=== PATIENT | female | born 1965 | race Caucasian/White ===

== ENCOUNTER 2018-10-22 09:59 | Emergency (ER) | payer BC ==
[2018-10-22 10:17] VITALS: BP 130/77
--- NOTE | 2018-10-22 10:24 | UC ---
Throat Pain/Nasal Leo HPI - HPI Summary HPI Summary: 53 y/o female presents to the urgent care c/o fever, body aches nasal congestion and B/L ear pain for the past 2 days. Pt reports severe sore throat yesterday. Pain w/ swallowing is 9/10. She has been taking Nyquill PO, Theraflu. Pt states also productive cough w/ yellowish phlegm. Pt denies SOB, wheezing, chest pain, abdominal pain, N/V/D. - History of Current Complaint Chief Complaint: UCGeneralIllness Stated Complaint: ST, BI LAT EAR PAIN Time Seen by Provider: 10/22/18 10:21 Hx Obtained From: Patient Hx Last Menstrual Period: n/a ?: No - Menopausal Onset/Duration: Gradual Onset, Lasting Days - 3 days, Still Present, Worse Since - today Severity: Severe Pain Intensity: 9 - body aches and sore throat Pain Scale Used: 0-10 Numeric Cough: Productive - [email or web address] Associated Signs & Symptoms: Positive: Dysphagia, Nasal Discharge - yellowish, Fever - Epiglottits Risk Factors Epiglottis Risk Factors: Negative - Allergies/Home Medications Allergies/Adverse Reactions: Allergies Allergy/AdvReac Type Severity Reaction Status Date / Time No Known Allergies Allergy Verified 10/22/18 10:15 Home Medications: Home Medications Acetaminophen [Acetaminophen Extra Strength] 1,000 mg PO Q6H PRN 10/22/18 [ History Confirmed 10/22/18] Diphenhydra/Phenyleph/Acetamin [Theraflu Expressmax Cold Nt Lq] 245.5 ml PO BEDTIME 10/22/18 [History Confirmed 10/22/18] PMH/Surg Hx/FS Hx/Imm Hx Previously Healthy: Yes Endocrine History: Diabetes - diet controlled - Surgical History Surgical History: Yes Surgery Procedure, Year, and Place: - Family History Known Family History: Positive: Cardiac Disease, Diabetes - Social History Occupation: Employed Full-time Lives: With Family Alcohol Use: Occasionally Substance Use Type: None Smoking Status (MU): Never Smoked Tobacco Review of Systems All Other Systems Reviewed And Are Negative: Yes Constitutional: Positive: Fever, Chills, Fatigue, Other - body aches Skin: Positive: Negative Eyes: Positive: Negative ENT: Positive: Sore Throat, Ear Ache - B/L ear pain, Nasal Discharge - yellowish , Sinus Congestion, Sinus Pain/Tenderness Respiratory: Positive: Cough - propductive w/ yellowish phlegm Cardiovascular: Positive: Negative Gastrointestinal: Positive: Negative Genitourinary: Positive: Negative Motor: Positive: Negative Neurovascular: Positive: Negative Musculoskeletal: Positive: Myalgia Neurological: Positive: Headache Psychological: Positive: Negative Is Patient Immunocompromised?: No Physical Exam - Summary Physical Exam Summary: Vital Signs Reviewed: Yes General: well developed, well nourished female sitting in the examining table w/ o any apparent distress Eyes: Positive: Conjunctiva Clear - PERRLA, EOMI, fundi grossly normal ENT: Positive: Normal ENT inspection, Hearing grossly normal, Pharynx normal, Nasal congestion - edematous and erythematous nasal mucosa, Nasal drainage - yellowish drainage, TMs normal. Negative: Tonsillar swelling, Tonsillar exudate Neck: Positive: Supple, Nontender, No Lymphadenopathy Respiratory: no orthopnea or dyspnea. Able to speak in full sentences, no retractions or accessory muscle use, no tripod position, stridor, or head bobbing. Positive breath sounds bilaterally. diffuse scattered rhonchi on b/L lungs lF>rt,no wheezes, no crackles or rales. Cardiovascular: Positive: RRR, No Murmur, Pulses Normal, Brisk Capillary Refill Abdomen Description: Positive: Nontender, No Organomegaly, Soft. Negative: CVA Tenderness (R), CVA Tenderness (L) Bowel Sounds: Positive: Present Musculoskeletal Exam: Normal Musculoskeletal: Positive: Strength Intact, ROM Intact, No Edema Neurological Exam: Normal Psychological Exam: Normal Skin Exam: Normal Triage Information Reviewed: Yes Vital Signs: Initial Vital Signs Temp 100.1 F 10/22/18 10:14 Pulse 89 10/22/18 10:14 Resp 16 10/22/18 10:14 BP 130/77 10/22/18 10:14 Pulse Ox 97 10/22/18 10:14 Throat Pain/Nasal Course/Dx - Course Course Of Treatment: 53 y/o female presents to the urgent care c/o fever, body aches nasal congestion and B/L ear pain for the past 2 days. Pt reports severe sore throat yesterday. Pain w/ swallowing is 9/10. She has been taking Nyquill PO, Theraflu. Pt states also productive cough w/ yellowish phlegm. Pt denies SOB , wheezing, chest pain, abdominal pain, N/V/D. Hx obtained. RApid strep: negative, Influenza A&B: negative. Chest X-ray ordered: Impression: Suggestive of left upper lobe infiltrate, underlying mass can't be excluded. Radiologist recommends repeat X-ray after completing treatment. Pt is hemodynamically stable. O2Sat: 97%. Pt Rx Doxycycline PO, Tessalon tabs PO as directed below. Strongly advised to f/u with her PCP after treatment is completely to comfirm full resolusion of pneumonia. D/c instructions explained. PCP. Pt understood and agreed with D/C instructions and left the clinic hemodynamically stable. - Differential Dx/Diagnosis Differential Diagnosis/HQI/PQRI: Influenza, Laryngitis, Pharyngitis, URI, Other - bronchitis, pneumonia Provider Diagnosis: Community acquired pneumonia Discharge - Sign-Out/Discharge Documenting (check all that apply): Patient Departure - D/C home All imaging exams completed and their final reports reviewed: Yes - Discharge Plan Condition: Stable Disposition: HOME Prescriptions: Benzonatate CAP* [Tessalon 100 MG CAP*] 100 mg PO TID PRN #21 cap PRN Reason: Cough DOXYcycline CAP(*) [DOXYcycline 100MG CAP(*)] 100 mg PO BID #20 cap Patient Education Materials: Community Acquired Pneumonia (ED) Forms: *Work Release Referrals: Kai Ann MD [Primary Care Provider] - 1 Week Additional Instructions: 1-Please take full course of antibiotic to avoid resistance. 2-Take Tessalon tabs to alleviate cough. Increase fluid intake, rest and eat well. 3- If symptoms do not improve or worsen or your develop SOB with fever and severe cough please go immediately to the ER further evaluation and treatment. 4-See your PCP in 3 days to check your symptoms are improving and make sure you f/u w/ him after treatment to make sure complete resolution of pneumonia since radiologist couldn't r/o a mass - Billing Disposition and Condition Condition: STABLE Disposition: Home - Attestation Statements Provider Attestation: Per institutional requirements, I have reviewed the chart, however, I was not consulted specifically or made aware of this patient by the midlevel provider. I did not personally evaluate, interact with , or disposition this patient.
[2018-10-22] MEDS ORDERED: Acetaminophen TAB* 325 MG PO ONE (10:57)
== END 2018-10-22 11:57 | disposition home or self-care (01) ==
LOC: UCCORT 09:59
DX: J18.9 Pneumonia, unspecified organism (principal); R09.81 Nasal congestion; H92.03 Otalgia, bilateral; J02.9 Acute pharyngitis, unspecified; R13.10 Dysphagia, unspecified; R09.89 Other specified symptoms and signs involving the circulatory and respiratory systems; E11.9 Type 2 diabetes mellitus without complications; M79.10 Myalgia, unspecified site; R51 Headache; Z83.3 Family history of diabetes mellitus
CPT/HCPCS: 71046; 87651; 99212; A9270-GY; G0463